=== PATIENT | male | born 1965 | race Caucasian/White ===

== ENCOUNTER 2017-01-12 12:25 | Emergency (ER) | payer OTHER ==
[2017-01-12 13:45] VITALS: BP 132/88
--- NOTE | 2017-01-12 13:46 | ED ---
Back Pain - HPI Summary HPI Summary: Patient presents to the ED with medication refill for Celeboxib for back pain. He states he has had fusions and other surgeries to the back in [place]. He has been unable to secure a physician who will see him. He denies numbness/tingling , color or temperature changes. Denies other symptoms or complaints. Last medication use yesterday. He has been otherwise healthy. He is also requesting PCP. Denies fevers, sweats or chills. Denies other significant medical history and only takes one medication. - History of Current Complaint Chief Complaint: EDGeneral Stated Complaint: NEEDS SCRIPTS Time Seen by Provider: 01/12/17 12:48 Hx Obtained From: Patient Onset/Duration: Sudden Onset Onset/Duration: Started Hours Ago Timing: Constant Back Pain Location: Is Discrete @ - diffuse throughout the spine Pain Intensity: 5 Pain Scale Used: 0-10 Numeric Character: Aching Associated Signs And Symptoms: Positive: Negative - Allergies/Home Medications Allergies/Adverse Reactions: Allergies Allergy/AdvReac Type Severity Reaction Status Date / Time No Known Allergies Allergy Verified 12/18/15 13:05 PMH/Surg Hx/FS Hx/Imm Hx Previously Healthy: Yes Endocrine/Hematology History: Denies: Hx Diabetes Cardiovascular History: Denies: Hx Hypertension, Hx Pacemaker/ICD Respiratory History: Reports: Hx Chronic Obstructive Pulmonary Disease (COPD) GI History: Reports: Hx Diverticulosis, Hx Gastroesophageal Reflux Disease, Other GI Disorders - DIVERTICULITIS Sensory History: Denies: Hx Hearing Aid Psychiatric History: Denies: Hx Panic Disorder - Surgical History Surgery Procedure, Year, and Place: HERNIA, RIGHT SHOULDER TORN ROTATOR CUFF, SCREW IN LEFT KNEE - Immunization History Hx Pertussis Vaccination: No Immunizations Up to Date: Yes Infectious Disease History: No Infectious Disease History: Denies: Traveled Outside the [place] in Last 30 Days - Family History Known Family History: Positive: Cardiac Disease, Hypertension, Diabetes, Other - HLD - Social History Occupation: Employed Full-time Lives: With Family Alcohol Use: Rare Hx Substance Use: No Substance Use Type: Reports: None Smoking Status (MU): Heavy Every Day Tobacco Smoker Type: Cigarettes Amount Used/How Often: 1PPD Length of Time of Smoking/Using Tobacco: 10-15 years Have You Smoked in the Last Year: Yes Review of Systems Constitutional: Negative Negative: Fever, Chills, Fatigue Eyes: Negative Cardiovascular: Negative Genitourinary: Negative Positive: no symptoms reported, see HPI Positive: Arthralgia - diffuse Neurological: Negative All Other Systems Reviewed And Are Negative: Yes Physical Exam Triage Information Reviewed: Yes Vital Signs On Initial Exam: Initial Vitals Temp Pulse Resp BP Pulse Ox 97.8 F 81 16 139/67 99 01/12/17 12:28 01/12/17 12:28 01/12/17 12:28 01/12/17 12:28 01/12/17 12:28 Vital Signs Reviewed: Yes Appearance: Positive: Well-Appearing, Well-Nourished Skin: Positive: Warm, Skin Color Reflects Adequate Perfusion Head/Face: Positive: Normal Head/Face Inspection Eyes: Positive: IVONNE, Conjunctiva Clear Neck: Positive: Supple, No Lymphadenopathy Respiratory/Lung Sounds: Positive: Clear to Auscultation, Breath Sounds Present Cardiovascular: Positive: RRR Musculoskeletal: Positive: Strength/ROM Intact Neurological: Positive: Speech Normal Psychiatric: Positive: Normal AVPU Assessment: Alert - Jennifer Coma Scale Coma Scale Total: 15 Diagnostics - Vital Signs Vital Signs Temp Pulse Resp BP Pulse Ox 01/12/17 12:28 97.8 F 81 16 139/67 99 - Laboratory Lab Statement: Any lab studies that have been ordered have been reviewed, and results considered in the medical decision making process. Back Pain Course/Dx - Course Course Of Treatment: Patient is given script for celeboxib for chronic back pain. I have given a referral to neurosurgery and PCP as well. He is OK with plan and discharge. NAD and VS stable. - Diagnoses Provider Diagnoses: Medication refill Discharge - Discharge Plan Condition: Stable Disposition: HOME Prescriptions: celeCOXIB CAP* [Celebrex CAP*] 200 mg PO DAILY #30 cap Patient Education Materials: Celecoxib (By mouth) Referrals: Yasmany Brown MD [Primary Care Provider] - Shaunna Holbrook MD [Medical Doctor] - Additional Instructions: Follow up with PCP Follow up with neurosurgery
== END 2017-01-12 13:45 | disposition home or self-care (01) ==
LOC: ED 12:25
DX: M54.9 Dorsalgia, unspecified (principal); Z76.0 Encounter for issue of repeat prescription; F17.210 Nicotine dependence, cigarettes, uncomplicated
CPT/HCPCS: 99282

== ENCOUNTER 2019-01-03 13:31 | Emergency (ER) | payer OTHER ==
--- NOTE | 2019-01-03 15:58 | ED ---
HPI Chest Pain - HPI Summary HPI Summary: Patient is a 53 y/o M presenting to the ED for a chief complaint of left-sided chest pain that radiates to the left flank. On 01/03/19, the patient had a cough with phlegm during which he had a "tearing" sensation in his chest. Patient describes the chest pain as soreness and rates the pain as 10/10 in severity with coughing and with deep breaths. The chest pain is improved by adding pressure to his chest, which the patient states he is currently doing with a pillow. Patient also reports difficulty lying on his left side due to the chest pain and SOB that has since resolved. He also states he has a bulla with the dimensions of 2 inches by 3 inches on his lung. Patient denies fever or chills. PMHx is significant for diverticulitis, and PSHx is significant for lumbar and cervical spinal fusion performed in [place], [place]. Patient admits tobacco use, but denies alcohol or drug use. - History of Current Complaint Chief Complaint: EDChestPainROMI Time Seen by Provider: 01/03/19 15:49 Hx Obtained From: Patient Onset/Duration: Started Hours Ago, Atraumatic, Still Present Timing: Intermittent Initial Severity: Severe Current Severity: Severe Pain Intensity: 10 Pain Scale Used: 0-10 Numeric Chest Pain Location: Left Anterior Chest Pain Radiates: Yes Chest Pain Radiates To:: Flank - Left Character: Other: - Soreness Aggravating Factor(s): Deep Breaths, Other: - Coughing Alleviating Factor(s): Other: - Adding pressure to the chest Associated Signs and Symptoms: Positive: Chest Pain, Shortness of Breath - Resolved, Cough - Productive, Productive Cough. Negative: Fever, Chills - Allergy/Home Medications Allergies/Adverse Reactions: Allergies Allergy/AdvReac Type Severity Reaction Status Date / Time No Known Allergies Allergy Verified 01/03/19 13:50 Home Medications: Home Medications Naproxen Sodium [Aleve] 440 mg PO Q6HR PRN 01/03/19 [History Confirmed 01/03/19] SUMAtriptan succinate [Onzetra Xsail] 11 mg BOTH NARES DAILY PRN 01/03/19 [ History Confirmed 01/03/19] PMH/Surg Hx/FS Hx/Imm Hx Previously Healthy: Yes Endocrine/Hematology History: Denies: Hx Diabetes Cardiovascular History: Denies: Hx Hypercholesterolemia, Hx Hypertension, Hx Pacemaker/ICD Respiratory History: Reports: Hx Chronic Obstructive Pulmonary Disease (COPD) GI History: Reports: Hx Diverticulosis, Hx Gastroesophageal Reflux Disease, Other GI Disorders - DIVERTICULITIS History: Reports: Other Problems/Disorders - Diverticulitis Denies: Hx Renal Disease Sensory History: Denies: Hx Legally Blind, Hx Deafness, Hx Hearing Aid Opthamlomology History: Denies: Hx Legally Blind EENT History: Denies: Hx Deafness Psychiatric History: Denies: Hx Panic Disorder - Surgical History Surgical History: Yes Surgery Procedure, Year, and Place: HERNIA, RIGHT SHOULDER TORN ROTATOR CUFF, SCREW IN LEFT KNEE, HEMMOROIDECTOMY, LIPOMA EXCISION BACK, 2016 LUMBAR SURGERY FUSION WITH PINS, CERVICAL SPINAL FUSION Infectious Disease History: No Infectious Disease History: Denies: Traveled Outside the [place] in Last 30 Days - Family History Known Family History: Positive: Cardiac Disease, Hypertension, Diabetes, Other - HLD - Social History Occupation: Unemployed Lives: Alone Alcohol Use: Rare Hx Substance Use: No Substance Use Type: Reports: None Hx Tobacco Use: Yes Smoking Status (MU): Heavy Every Day Tobacco Smoker Type: Cigarettes Amount Used/How Often: 1PPD Length of Time of Smoking/Using Tobacco: 10-15 years Have You Smoked in the Last Year: Yes Review of Systems Negative: Fever, Chills Positive: Chest Pain - Left-sided Positive: Shortness Of Breath - Resolved, Cough - With phlegm Positive: flank pain - Left radiating from chest All Other Systems Reviewed And Are Negative: Yes Physical Exam - Summary Physical Exam Summary: VITAL SIGNS: Reviewed. GENERAL: Patient is a well-developed and nourished MALE who is lying comfortable in the stretcher. Patient is not in any acute respiratory distress. HEAD AND FACE: No signs of trauma. No ecchymosis, hematomas or skull depressions. No sinus tenderness. EYES: PERRLA, EOMI x 2, No injected conjunctiva, no nystagmus. EARS: Hearing grossly intact. Ear canals and tympanic membranes are within normal limits. MOUTH: Oropharynx within normal limits. NECK: Supple, trachea is midline, no adenopathy, no JVD, no carotid bruit, no c- spine tenderness, neck with full ROM. CHEST: Symmetric, no tenderness at palpation. Reproducible chest pain on the left side. LUNGS: Clear to auscultation bilaterally. No wheezing or crackles. CVS: Regular rate and rhythm, S1 and S2 present, no murmurs or gallops appreciated. ABDOMEN: Soft, non-tender. No signs of distention. No rebound, no guarding, and no masses palpated. Bowel sounds are normal. EXTREMITIES: FROM in all major joints, no edema, no cyanosis or clubbing. NEURO: Alert and oriented x 3. No acute neurological deficits. Speech is normal and follows commands. SKIN: Dry and warm. Triage Information Reviewed: Yes Vital Signs On Initial Exam: Initial Vitals Temp Pulse Resp BP Pulse Ox 98 F 81 20 138/80 99 01/03/19 13:46 01/03/19 13:46 01/03/19 13:46 01/03/19 13:46 01/03/19 13:46 Vital Signs Reviewed: Yes Procedures - Sedation Patient Received Moderate/Deep Sedation with Procedure: No Diagnostics - Vital Signs Vital Signs Temp Pulse Resp BP Pulse Ox 01/03/19 13:46 98 F 81 20 138/80 99 - Laboratory Result Diagrams: 01/03/19 16:08 01/03/19 16:08 Lab Statement: Any lab studies that have been ordered have been reviewed, and results considered in the medical decision making process. - Radiology Chest X-ray Radiology Interpretation Completed By: Radiologist Summary of Radiographic Findings: Chest X-ray IMPRESSION: 1. POSSIBLE NODULE IN THE RIGHT LUNG. RECOMMEND A NONCONTRAST CT OF THE CHEST FOR FURTHER EVALUATION. 2. COPD, NO EVIDENCE FOR ACUTE FINDING. Reviewed by Dr. Landin. - EKG 13:32 Cardiac Rate: NL - 79 BPM EKG Rhythm: Sinus Rhythm ST Segment: Normal Ectopy: None Summary of EKG Findings: EKG at 13:32 shows 79 BPM with normal sinus rhythm, no ST elevations, no STEMI. Reviewed and interpreted by Dr. Landin. Re-Evaluation - Re-Evaluation First Eval Re-Evaluation Time: 17:49 Change: Unchanged Comment: At 17:49, the patient is refusing to have a chest CT. I discussed at length the benefits and risks associated with the chest CT, and the patient still refuses. Patient wishes to have a chest CT performed in outpatient with his PCP and wants to be discharged. Patient is aware of the lung nodule on chest x-ray and understands a follow up with his PCP is needed in the next 2 days. Chest Pain Course/Dx - Course Assessment/Plan: The patient is a 53-year-old male who presents to the emergency room with a chief complaint of chest pain. Blood work is without any significant abnormality except for slight anemia and carbon dioxide of 34. Chest x-ray impression: Possible nodule in the right lung. Recommend and unconscious CT of the chest for further evaluation. COPD no evidence for acute findings. Patient was given Toradol for the pain and the pain improved. I ordered a chest CT as recommended by radiology. However the patient declined chest CT. I discussed the benefits and risks of getting the CT and he reports that he wants to do these tests as an outpatient with his primary care physician. The patient is aware of the lung nodule and the importance of follow- up with the primary care physician in the next day or two. The patient understands and agrees. - Diagnoses Provider Diagnoses: Chest pain, Lung nodule Discharge ED - Sign-Out/Discharge Documenting (check all that apply): Patient Departure - Discharge - Discharge Plan Condition: Stable Disposition: HOME Patient Education Materials: Chest Pain (ED) Referrals: Yasmany Brown MD [Primary Care Provider] - Additional Instructions: FOLLOW UP WITH YOUR PRIMARY CARE PROVIDER WITHIN 2 DAYS. RETURN TO THE ED FOR ANY WORSENING OR NEW SYMPTOMS. - Billing Disposition and Condition Condition: STABLE Disposition: Home - Attestation Statements Document Initiated by Georgi: Yes Documenting Scribe: Jacqueline Jeffries Provider For Whom Georgi is Documenting (Include Credential): Irvin Landin MD Scribe Attestation: Jacqueline Ruiz scribed for Irvin Landin MD on 01/03/19 at 2101. Scribe Documentation Reviewed: Yes Provider Attestation: The documentation as recorded by the Jacqueline cortez accurately reflects the service I personally performed and the decisions made by me, Irvin Landin MD Status of Scribe Document: Viewed
[2019-01-03 16:21] LABS: ABS Eosinophils 0.1 10^3/ul (0-0.6); ABS Lymphocytes 1.5 10^3/ul (1.0-4.8); ABS Monocytes 0.4 10^3/ul (0-0.8); ABS Neutrophils 3.8 10^3/ul (1.5-7.7); Hematocrit 41 % (42-52); Hemoglobin 13.6 g/dL (14.0-18.0); Lymphocyte % 25.5 %; Mean Corpuscular HGB Conc 33 g/dL (31-36); Mean Corpuscular Hemoglobin 33 pg (27-31); Mean Corpuscular Volume 98 fL (80-94); Mean Platelet Volume 10.1 fL (7.4-10.4); Platelet Count 214 10^3/uL (150-450); Red Blood Count 4.15 10^6 /uL (4.18-5.48); Red Cell Distribution Width 13 % (10-15); White Blood Count 5.8 10^3/uL (3.5-10.8)
[2019-01-03 16:37] LABS: ALT 15 U/L (7-52); AST 20 U/L (13-39); Albumin 4.1 g/dL (3.2-5.2); Albumin/Globulin Ratio 1.7 (1-3); Alkaline Phosphatase 73 U/L (34-104); BUN/Creatinine Ratio 6.2 (8-20); Blood Urea Nitrogen 6 mg/dL (6-24); CO2 Carbon Dioxide 34 mmol/L (22-32); Calcium 9.6 mg/dL (8.6-10.3); Chloride 101 mmol/L (101-111); Globulin 2.4 g/dL (2-4); Glucose 79 mg/dL (70-100); Potassium 4.4 mmol/L (3.5-5.0); Sodium 135 mmol/L (135-145); Total Protein 6.5 g/dL (6.4-8.9)
[2019-01-03] MEDS ORDERED: Ketorolac INJ* 30 MG/ML 1 ML VIAL IV PUSH ONE (17:22)
[2019-01-03 18:04] VITALS: BP 120/98
== END 2019-01-03 18:04 | disposition home or self-care (01) ==
LOC: ED 13:31
DX: R07.89 Other chest pain (principal); R91.1 Solitary pulmonary nodule; J44.9 Chronic obstructive pulmonary disease, unspecified; F17.210 Nicotine dependence, cigarettes, uncomplicated
CPT/HCPCS: 36415; 71046; 80053; 85025; 86140; 93005; 99283